=== PATIENT | female | born 1955 | race Caucasian/White ===

== ENCOUNTER 2025-03-01 09:24 | Day surgery (SDC) | payer MEDICARE, OTHER ==
[~2025-03-01] VITALS: Ht 172.7 cm; Wt 52.0 kg
--- NOTE | ~2025-03-01 | OR ---
[facility] [address] [place], [place] [address] Draft DATE OF OPERATION: 03/01/2025 SURGEON: Lydia Briceño DO PREOPERATIVE DIAGNOSIS: Colon cancer screening. POSTOPERATIVE DIAGNOSIS: Colon cancer screening with a sessile polyp at 10 cm. PROCEDURE PERFORMED: Colonoscopy with biopsy of polyp at 10 cm. ANESTHESIA: IV sedation. EBL: None. DRAINS: None. COMPLICATIONS: None. DESCRIPTION OF PROCEDURE: The patient was brought to the GI lab, placed in supine position. After induction of IV sedation, the patient was placed in the left lateral position and padded to the satisfaction of anesthesia. An Olympus video colonoscope was then introduced into the rectum and advanced approximately 10 cm flat, sessile polyp was noted. Multiple biopsies were taken, and multiple cold biopsies were taken, and the specimen was passed off the field. The colon was then further insufflated and then passed from the rectosigmoid, sigmoid colon, descending colon, transverse colon, and into the ascending colon and cecum. The colon was fully insufflated, and inspection of the mucosal surface was carried out. The ascending colon and cecum had no intrinsic or extrinsic masses, lesions, or ulceration appreciated. The scope was brought back into the transverse colon. No lesions or ulcerations were noted. No intrinsic and extrinsic masses appreciated. The scope was then brought back to the splenic flexure down to the descending colon. No intrinsic or extrinsic masses. No lesions or ulcerations were appreciated. The scope was brought back into the sigmoid colon where no intrinsic or PATIENT NAME: SHANTELL VAZQUEZ OPERATIVE REPORT DATE OF : 57 REPORT #: [id number] PHYSICIAN: LYDIA BRICEÑO DO PCP: DIANNE COYLE MD REPORT IS CONFIDENTIAL AND NOT TO BE RELEASED WITHOUT AUTHORIZATION [address] [place], [place] [address] Draft extrinsic masses, lesions, or ulceration noted. The scope was then brought back to the rectosigmoid polyp area that had previously been biopsied, satisfactory hemostasis was maintained. The scope was then removed. The patient tolerated the procedure well and went to recovery room in satisfactory condition. DO PATRICIA Babb/BOB /[id number] Copies: ~ PATIENT NAME: SHANTELL VAZQUEZ OPERATIVE REPORT DATE OF : 57 REPORT #: [id number] PHYSICIAN: LYDIA BRICEÑO DO PCP: DIANNE COYLE MD REPORT IS CONFIDENTIAL AND NOT TO BE RELEASED WITHOUT AUTHORIZATION
[~2025-03-01 09:24] MED LIST: CALCIUM + D3 E1 EACH PO; IBLOOD GLUCOSE TEST STRIP 1 EA TEST VI PRN; IRON240 MG PO; LACTATED RINGER'S 1,000 ML IV SCH; LIDOCAINE HCL 1% 5 ML SDV INJ ONE; MAGNESIUM500 MG PO
[2025-03-01 10:07] VITALS: BP 126/72
[2025-03-01] MEDS ORDERED: LIDOCAINE HCL 2% 5 ML SDV ONE ×2 (10:52→11:34)
--- NOTE | 2025-03-01 12:16 | NUR ---
03/01/25 1216 Stephenie Arce 1209- PT ARRIVES TO PACU, LEFT LATERAL POSITION, NON REACTIVE TO STIMULUS, LR INFUSING TO RFA IV. O2 AT 6L PER MASK, BREATHING EVEN AND NON LABORED. ABD SOFT, NON DISTENDED. ALL MONITORS IN PLACE.
[2025-03-01 12:34] VITALS: BP 117/74
--- NOTE | 2025-03-05 12:11 | PATH ---
[facility] [address] [place], [place] [address] Signed SPECIMEN(S): A COLON POLYP AT 10 CM SPECIMEN SOURCE: A. COLON POLYP AT 10 CM CLINICAL HISTORY: Screening. Post: Polyp FINAL PATHOLOGIC DIAGNOSIS: Colon polyp at 10 cm - Hyperplastic polyp. AMB MICROSCOPIC EXAMINATION: Histologic sections of all submitted blocks are examined by light microscopy. These findings, together with the gross examination, support the pathologic diagnosis. GROSS DESCRIPTION: The specimen, labeled and designated "Ger, colon polyp at 10 cm," is received in formalin and consists of two bishop soft tissue fragments, ranging from 0.2 cm. Entirely submitted in (A1). JS (under the direct supervision of a pathologist) The Gross Description was prepared using a voice recognition system. The report was reviewed for accuracy; however, sound-alike word errors, addition and/or deletions may occur. If there is any question about this report, please contact Client Services. ADDITIONAL NOTES: Immunohistochemical and/or in situ hybridization studies if performed in this case included appropriate positive controls that reacted as expected. This test was developed and its performance characteristics determined by [facility]. It has not been cleared or approved by the U.S. Food and Drug Administration. The FDA has determined that such clearance or approval is not necessary. This test is used for clinical purposes. It should not be regarded as investigational or for research. [facility] is certified under the Clinical Laboratory Improvement Amendments of 1988 (CLIA) as qualified to perform high complexity clinical laboratory testing. PATIENT NAME: SHANTELL VAZQUEZ PATHOLOGY DATE OF : 57 REPORT #: [id number] PHYSICIAN: BAYLEE HERNANDEZ PCP: DIANNE COYLE MD REPORT IS CONFIDENTIAL AND NOT TO BE RELEASED WITHOUT AUTHORIZATION [facility] [address] [place], [place] [address] Signed PERFORMING LABORATORY: Technical component was performed by [facility], [address] [place] [address] (CLIA# [id number]). Professional interpretation was performed by [facility] - [address] [id number] Diagnostician: Maya Vazquez MD Pathologist Electronically Signed 03/05/2025 Copies: ~ PATIENT NAME: SHANTELL VAZQUEZ PATHOLOGY DATE OF : 57 REPORT #: [id number] PHYSICIAN: BAYLEE HERNANDEZ PCP: DIANNE COYLE MD REPORT IS CONFIDENTIAL AND NOT TO BE RELEASED WITHOUT AUTHORIZATION
== END 2025-03-01 12:53 | disposition home or self-care (01) ==
LOC: DS 09:24
PROVIDERS: ATTEND Surgery
PROC: 0DBN8ZX Excision of Sigmoid Colon, Via Natural or Artificial Opening Endoscopic, Diagnostic (ICD-10-PCS; principal; 2025-03-01 11:30)
DX: Z12.11 Encounter for screening for malignant neoplasm of colon (principal); K63.5 Polyp of colon; E78.00 Pure hypercholesterolemia, unspecified; Z85.3 Personal history of malignant neoplasm of breast; Z86.0109 Personal history of other colon polyps; Z80.0 Family history of malignant neoplasm of digestive organs; Z79.1 Long term (current) use of non-steroidal anti-inflammatories (NSAID); Z91.018 Allergy to other foods
CPT/HCPCS: 00812; J2003; J2704